=== PATIENT | male | born 1985 | race Caucasian/White ===

== ENCOUNTER 2024-11-14 19:29 | Emergency (ER) | payer OTHER ==
[~2024-11-14] VITALS: Ht 172.7 cm; Wt 162.0 kg
[2024-11-14 19:35] VITALS: BP 123/70; PULSE 69; RESP 18; TEMP 98.6; O2SAT 99
[2024-11-14] MEDS ORDERED: HYDR-4062 PO (20:21)
[2024-11-14] MEDS ORDERED: PENI500T2 PO (20:21)
[2024-11-14] MEDS ORDERED: IBUP-1554 PO (20:21)
== END 2024-11-14 20:29 | disposition home or self-care (01) ==
LOC: EMS 19:29
DX: K04.7 Periapical abscess without sinus (principal); K08.89 Other specified disorders of teeth and supporting structures; Z79.899 Other long term (current) drug therapy
CPT/HCPCS: 99283; Z7502